=== PATIENT | male | born 1945 ===

== ENCOUNTER → 2025-06-20 07:10 | Outpatient (REF) | payer MEDICARE, BC, SELFPAY | LOC: HWRCS 07:10 | PROVIDERS: ATTENDING PHYSICIAN Internal Medicine Cardiovascular Disease; FAMILY PHYSICIAN Internal Medicine | DX: I45.10 Unspecified right bundle-branch block (principal); I25.10 Atherosclerotic heart disease of native coronary artery without angina pectoris; E78.00 Pure hypercholesterolemia, unspecified; G47.33 Obstructive sleep apnea (adult) (pediatric); Z95.0 Presence of cardiac pacemaker; R60.0 Localized edema | CPT/HCPCS: 93306 ==